=== PATIENT | female | born 1955 | race Caucasian/White ===

== ENCOUNTER 2019-03-10 11:42 | Emergency (ER) | payer MEDICAID ==
[~2019-03-10] VITALS: Ht 152.4 cm; Wt 11.3 kg
[~2019-03-10 11:42] MED LIST: HYDACE5 PO; NAPR500 PO
== END 2019-03-10 12:35 | disposition home or self-care (01) ==
LOC: ER 11:42
DX: M77.01 Medial epicondylitis, right elbow (principal); F17.210 Nicotine dependence, cigarettes, uncomplicated; Z88.1 Allergy status to other antibiotic agents
CPT/HCPCS: 99283

== ENCOUNTER 2019-03-13 12:28 | Emergency (ER) | payer MEDICAID ==
[~2019-03-13] VITALS: Ht 152.4 cm; Wt 59.0 kg
[2019-03-13] MEDS ORDERED: PRED10 PO (13:41)
[2019-03-13] MEDS ORDERED: Ultram50 MG PO (13:41)
== END 2019-03-13 13:49 | disposition home or self-care (01) ==
LOC: ER 12:28
DX: M77.9 Enthesopathy, unspecified (principal); Z88.1 Allergy status to other antibiotic agents; Z79.891 Long term (current) use of opiate analgesic
CPT/HCPCS: 29125; 99283-25

== ENCOUNTER 2022-08-16 07:02 | Day surgery (SDC) | payer OTHER ==
[~2022-08-16] VITALS: Ht 152.4 cm; Wt 55.5 kg
[~2022-08-16 07:02] MED LIST changes: +PRED10 PO; +Ultram50 MG PO
--- NOTE | 2022-08-16 08:08 | NUR ---
Ambulatory in Day Surgery History, Chart, Medications and Allergies reviewed before start of procedure.Pre-Op teaching done. Pt verbalizes understanding. Patient States Post-Procedure ride home has been arranged.
--- NOTE | 2022-08-16 11:05 | NUR ---
08/16/22 1105 Raymundo Dodson 1% LIDOCAINE WITH EPI 1:100 10ML INJECTED BY IN VAGINA
--- NOTE | 2022-08-16 11:48 | NUR ---
1135: PT W/CONT. INCREASED LABOR BREATHING AROUSABLE BUT UNABLE TO TALK NOW. "GUPPY MOUTH" BREATHING. JAW THRUST, PT REPOSITIONED TO HIGH FOLWERS. ENCOURAGE TO C&DB. 1138 RT CALLED TO COME W/BIPAP 1140 SATS CONT. TO DECREASE W/INC. HR. DR. HICKS CALLED TO BEDSIDE. OPA PLACED PT BAGGED. 1141 SUGAMADEX 200MG IVP GIVEN PER DR. HICKS ORDERS 1143 SAT'S AND HR IMPROVING. PT WIDE EYED W/SPONTANEOUS DEEP BREATHING. OPA SPIT OUT PT STATES "I HAVE TO PEE" 1145 02@ 2L/MIN VIA NC REMAINS.
--- NOTE | 2022-08-16 12:30 | NUR ---
Patient consent statement. Pt consented this 2nd year [facility] nursing ass[facility] to participate in her care today 08/16/2022. CT
--- NOTE | 2022-08-16 12:39 | NUR ---
1230 arrived to room, drowsy responds to verbal stimuli. pt feels need to void-stood to ambulate to bathroom and incontinent of large amount bright orange , blood tinged urine. ambulated to restroom and voided . abd sitesx4 with wound glue, no drainage. rosalee pad with smear of bloody drainage. pt denies any pain at this time. audible wheezing which pt reports she has at baseline. loose, non productive cough. lungs decreased throughout. pt denies sob
[2022-08-16] MEDS ORDERED: DOCU100 PO (14:27)
[2022-08-16] MEDS ORDERED: ACET500 PO (14:28)
[2022-08-16] MEDS ORDERED: IBUP400 PO (14:29)
--- NOTE | 2022-08-16 16:51 | NUR ---
vicente po fluids and crackers. pt states has urgency to void and feeling of vaginal pressure though denies any pain. ambulates independently to bathroom to void orange urine, scant light pink drainage on toilet tissue after voiding. abd lap sites dry and intact. pt discharged to home with her daughter and granddaughter. lungs clear and diminished, no wheezes. discharged to home at 1645
--- NOTE | 2022-08-16 16:55 | NUR ---
iv dc'd with catheter tip intact
== END 2022-08-16 16:47 | disposition home or self-care (01) ==
LOC: ORSCMMR 07:02 → ORD 08:30 → ORSCMMR 09:45 → SURS 12:17 → ORSCMMR 16:47
PROVIDERS: Obstetrics & Gynecology
PROC: 0UT2FZZ Resection of Bilateral Ovaries, Via Natural or Artificial Opening With Percutaneous Endoscopic Assistance (ICD-10-PCS; principal; 2022-08-16 08:30)
PROC: 0UT9FZZ Resection of Uterus, Via Natural or Artificial Opening With Percutaneous Endoscopic Assistance (ICD-10-PCS; principal; 2022-08-16 08:30)
PROC: 8E0W4CZ Robotic Assisted Procedure of Trunk Region, Percutaneous Endoscopic Approach (ICD-10-PCS; principal; 2022-08-16 08:30)
PROC: 0UT7FZZ Resection of Bilateral Fallopian Tubes, Via Natural or Artificial Opening With Percutaneous Endoscopic Assistance (ICD-10-PCS; principal; 2022-08-16 08:30)
DX: N95.0 Postmenopausal bleeding (principal); N81.2 Incomplete uterovaginal prolapse; D26.1 Other benign neoplasm of corpus uteri; N83.292 Other ovarian cyst, left side; N83.291 Other ovarian cyst, right side; N95.2 Postmenopausal atrophic vaginitis; F17.210 Nicotine dependence, cigarettes, uncomplicated; M41.9 Scoliosis, unspecified; J44.9 Chronic obstructive pulmonary disease, unspecified; I25.2 Old myocardial infarction; Z79.899 Other long term (current) drug therapy
CPT/HCPCS: 58571; S2900; 36415; 86900; 86901; 88307; A9270; J0690; J1100; J1885; J2250; J2310; J2405; J2704; J2795; J3010; J7120